=== PATIENT | female | born 1960 | race Caucasian/White ===

== ENCOUNTER 2019-07-22 14:50 | Emergency (ER) | payer OTHER ==
[~2019-07-22] VITALS: Ht 165.1 cm; Wt 65.8 kg
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
[2019-07-22] MEDS: ACETAMINOPHEN 325 MG TABLET PO ONE (16:00)
[2019-07-22] MEDS ORDERED: ACETAMINOPHEN 325 MG TABLET ONE (16:02)
[2019-07-22] MEDS ORDERED: KETOROLAC TROMETHAMINE INJ 30 MG/ML VIAL ONE (16:15)
[2019-07-22 16:20] VITALS: BP 159/97
[2019-07-22] MEDS: KETOROLAC TROMETHAMINE INJ 60 MG/2 ML VIAL IM ONE (16:22)
--- NOTE | 2019-07-22 16:56 | NUR ---
Patient discharged to home in stable condition. Written and verbal after care instructions given. Patient verbalizes understanding of instruction.
== END 2019-07-22 16:59 | disposition home or self-care (01) ==
LOC: ER 14:53 → EDSEX 14:53 → ER 16:59
DX: S16.1XXA Strain of muscle, fascia and tendon at neck level, initial encounter (principal); S50.812A Abrasion of left forearm, initial encounter; M50.30 Other cervical disc degeneration, unspecified cervical region; R51 Headache; R11.0 Nausea; I10 Essential (primary) hypertension; F32.9 Major depressive disorder, single episode, unspecified; V49.49XA Driver injured in collision with other motor vehicles in traffic accident, initial encounter; Y93.89 Activity, other specified; Y92.488 Other paved roadways as the place of occurrence of the external cause; Y99.8 Other external cause status
CPT/HCPCS: 70450; 72125; 96372; 99284; J1885